=== PATIENT | female | born 1985 | race Caucasian/White ===

== ENCOUNTER → 2017-02-06 | Outpatient (CLI) | payer OTHER ==
[~2017-02-06] MED LIST: CHOL100010 PO; DULO60CA44 PO; PRT/20 PO
[2017-02-06 18:08] LABS: ALKALINE PHOSPHATASE 78 U/L (45-117); ALT/SGPT 37 U/L (12-78); AST/SGOT 16 U/L (15-37); BLOOD UREA NITROGEN 13 mg/dl (7-18); BUN/CREATININE RATIO 21.5 (10-20); CALCIUM 9.3 mg/dl (8.5-10.1); CARBON DIOXIDE 26 mmol/L (21-32); CHLORIDE 107 mmol/L (98-107); CREATININE 0.61 mg/dl (0.60-1.20); GLUCOSE 96 mg/dl (70-99); HDL CHOLESTEROL 51 mg/dl; POTASSIUM 4.1 mmol/L (3.5-5.1); SODIUM 137 mmol/L (136-145)
[2017-02-06 18:19] LABS: CHOLESTEROL 233 mg/dl (0-200); CHOLESTEROL/HDL RATIO 4.6; LDL CHOLESTEROL CALCULATED 148 mg/dl; THYROID STIMULATING HORMONE 0.974 uIu/ml (0.300-4.500); TRIGLYCERIDES 168 mg/dl (0-150); VERY LOW DENSITY LIPOPROT CALC 34 mg/dl
[2017-02-11 05:28] LABS: ANTI-CENTROMERE AB <1.0 NEG AI (<1.0 NEG); ANTI-SS-A <1.0 NEG AI (<1.0 NEG); ANTI-SS-B <1.0 NEG AI (<1.0 NEG); DNA ds CRITHIDIA NEGATIVE (NEGATIVE); Sm Antibody <1.0 NEG AI (<1.0 NEG)
== END | disposition home or self-care (01) ==
LOC: C.LABPBG 15:03
PROVIDERS: ATTEND Physician Assistant
DX: Z00.00 Encounter for general adult medical examination without abnormal findings (principal); R53.83 Other fatigue; G62.9 Polyneuropathy, unspecified; M62.81 Muscle weakness (generalized)

== ENCOUNTER → 2017-02-20 | Outpatient (CLI) | payer OTHER ==
[2017-02-20 11:55] LABS: BASO % 0.2 %; BASO ABS # 0.03 K/uL (0-0.2); COMPLETE YES; EOS % 1.3 %; HEMATOCRIT 36.6 % (37-47); IG% 0.2 %; LYMPH % 9.9 %; LYMPH ABS # 1.38 K/uL (1.2-3.4); MEAN CELL VOLUME 90.8 fL (80-100); MEAN CORPUSCULAR HGB CONC 34.2 g/dl (32-36); MEAN PLATELET VOLUME 10.1 fL (7.4-10.4); MONO % 7.1 %; NEUT % 81.3 %; PLATELET COUNT 360 K/uL (130-400); RED BLOOD COUNT 4.03 M/uL (4.2-5.4); WHITE BLOOD COUNT 13.89 K/uL (4.8-10.8)
[2017-02-20 18:31] LABS: LYME DISEASE AB IGG NEG (NEG); LYME DISEASE AB IGM NEG (NEG)
== END | disposition home or self-care (01) ==
LOC: C.LABPBG 10:37
PROVIDERS: ATTEND Family Medicine
DX: R53.83 Other fatigue (principal); R29.898 Other symptoms and signs involving the musculoskeletal system; M79.606 Pain in leg, unspecified

== ENCOUNTER → 2017-02-26 | Day surgery (SDC) | payer OTHER ==
[~2017-02-26] VITALS: Ht 160 cm; Wt 77.3 kg
[~2017-02-26] MED LIST changes: +LIDOCAINE HCL 2% 2 ML VIAL (20MG/ML) ONE; +ONDANSETRON INJ 2 MG/ML 2 ML VIAL ONE; +PROPOFOL IV EMULSION 10 MG/ML 20 ML VIAL IV ONE; +SODIUM CHLORIDE 0.9% 500ML 500 ML IV ONE
[2017-02-26 13:38] VITALS: Ht 160 cm; Wt 77.3 kg
--- NOTE | 2017-02-26 13:52 | Endo History and Physical ---
History & Physical Date of Service: Feb 26, 2017. Chief Complaint: Dysphagia, Eosinophilic esophagitis Referring Physician: Dr. Cody History of Present Illness 31 yo CF who presents for EGD secondary to eosinophilic esophagitis and dysphagia. Past Surgical History Hx Cardiac Surgery: No Hx Internal Defibrillator: No Hx Pacemaker: No Hx Abdominal Surgery: Yes (KIANA, TUBAL LIGATION) Hx of Implantable Prosthesis: No Hx Post-Op Nausea and Vomiting: No Hx Cancer Surgery: No Hx Thoracic Surgery: No Hx Orthopedic: No Hx Urinary Tract Surgery: No Family History None Social History Smoking Status: Current Every Day Smoker Hx Substance Use: No Hx Alcohol Use: Yes (SOCIAL) Allergies Coded Allergies: No Known Allergies (Unverified , 02/26/17) Current Medications Reported Home Medications Medications Dose Route/Sig Max Daily Dose Days Date Category Dose Instructions Protonix (Pantoprazole Sodium) 20 Mg Tab 20 Mg PO DAILY 02/21/17 Reported AT PHARMACY NEW PRESCRIPTION Vitamin D (Cholecalciferol) 1,000 Unit Tab 1 Tab PO QPM 02/21/17 Reported Cymbalta (Duloxetine Hcl) 60 Mg Cap 60 Mg PO QPM 02/21/17 Reported Vital Signs Weight (Kilograms): 77.27 Height (Feet): 5 Height (Inches): 3 Physical Exam General Appearance: WD/WN, no apparent distress Respiratory/Chest: Auscultation: breath sounds normal Cardiovascular: Heart Auscultation: RRR Abdomen: Bowel Sounds: normal Inspection & Palpation: soft, non-distended, no tenderness, guarding & rebound Assessment and Plan Assessment: 31 yo CF who presents for EGD secondary to eosinophilic esophagitis and dysphagia. Plan: Proceed with EGD.
--- NOTE | 2017-02-26 15:02 | Discharge Instructions ---
Endoscopy Patient Instructions Date / Procedure(s) Performed Feb 26, 2017. EGD Allergy Information Coded Allergies: No Known Allergies (Unverified , 02/26/17) Discharge Date / Findings Feb 26, 2017. Eosinophilic esophagitis s/p dilation Hiatal hernia Medication Instructions OK to resume all medications today as prescribed Reported Home Medications Medications Dose Route/Sig Max Daily Dose Days Date Category Dose Instructions Protonix (Pantoprazole Sodium) 20 Mg Tab 20 Mg PO DAILY 02/21/17 Reported AT PHARMACY NEW PRESCRIPTION Vitamin D (Cholecalciferol) 1,000 Unit Tab 1 Tab PO QPM 02/21/17 Reported Cymbalta (Duloxetine Hcl) 60 Mg Cap 60 Mg PO QPM 02/21/17 Reported Provider Instructions Activity Restrictions - No exercising or heavy lifting for 24 hours. - Do not drink alcohol the day of the procedure. - Do not drive a car or operate machinery until the day after the procedure. - Do not make any important decisions or sign important papers in 24 hours after the procedure. Following Day: - Return to full activity which may include returning to work/school. Diet Start your diet with liquids and light foods (jello, soup, juice, toast). Then eat your usual diet if not nauseated. Treatment For Common After Affects For mild abdominal pain, bloating, or excessive gas: - Rest - Eat lightly - Lie on right side Follow-Up Information Follow-up with DR. CLIFFORD as scheduled Anesthesia Information What You Should Know You have had a procedure that required some medicine to reduce anxiety and discomfort. This treatment is called moderate sedation. After receiving the treatment, you may be sleepy, but you will be able to breathe on your own. The effects of the treatment may last for several hours. Follow these instructions along with Activity/Diet recommendations noted above: * Do NOT do anything where dizziness or clumsiness would be dangerous. * Rest quietly at home today, then you can be up and about tomorrow. * Have a responsible person stay with you the rest of today. * You may have had an I.V. today. If so, you may take the dressing off later today. Recommendations Call your doctor if: * Trouble breathing * Continuous vomiting for more than 24 hours * Temperature above 101 degrees * Severe abdominal pain or bloating * Pain not relieved by pain medicine ordered * There is increased drainage or redness from any incision * A large amount of rectal bleeding greater than 2-3 tablespoons. (If you had a polyp/s removed or have hemorrhoids, a small amount of blood - from the rectum is to be expected.) * You have any unanswered questions or concerns. IN THE EVENT OF A SERIOUS EMERGENCY, GO TO THE NEAREST EMERGENCY ROOM Your discharge instructions were prepared by provider Wyatt Alicia. Patient Instructions Signature Page Salima Masters Patient (or Guardian) Signature/Date: I have read and understand the instructions given to me by my caregivers. Caregiver/RN/Doctor Signature/Date: The above-named patient and/or guardian has received patient instructions on this date. + Original Patient Signature Page (only) stays with chart. Please make copy for patient.
--- NOTE | 2017-02-26 15:13 | GI REPORT ---
Procedure Date: 02/26/2017 2:43 PM Procedure: Upper GI endoscopy Indications: Dysphagia, Follow-up of eosinophilic esophagitis Medicines: Monitored Anesthesia Care Complications: No immediate complications. Estimated Blood Loss: Estimated blood loss: none. Procedure: Pre-Anesthesia Assessment: - Prior to the procedure, a History and Physical was performed, and patient medications and allergies were reviewed. The patient's tolerance of previous anesthesia was also reviewed. The risks and benefits of the procedure and the sedation options and risks were discussed with the patient. All questions were answered, and informed consent was obtained. Prior Anticoagulants: The patient has taken no previous anticoagulant or antiplatelet agents. ASA Grade Assessment: II - A patient with mild systemic disease. After reviewing the risks and benefits, the patient was deemed in satisfactory condition to undergo the procedure. After obtaining informed consent, the endoscope was passed under direct vision. Throughout the procedure, the patient's blood pressure, pulse, and oxygen saturations were monitored continuously. The scope was introduced through the mouth, and advanced to the second part of duodenum. The upper GI endoscopy was accomplished without difficulty. The patient tolerated the procedure well. Findings: Mucosal changes including ringed esophagus, longitudinal furrows and stenosis were found in the middle third of the esophagus. A guidewire was placed and the scope was withdrawn. Dilation was performed with a Savary dilator with mild resistance at 45 Fr. Estimated blood loss was minimal. A small hiatus hernia was present. The examined duodenum was normal. Impression: - Esophageal mucosal changes consistent with eosinophilic esophagitis. Dilated. - Small hiatus hernia. - Normal examined duodenum. - No specimens collected. Recommendation: - Resume previous diet. - Continue present medications. - Repeat the upper endoscopy PRN for retreatment. - Return to GI clinic as previously scheduled. Wyatt Alicia DO 02/26/2017 3:13:12 PM This report has been signed electronically. Note Initiated On: 02/26/2017 2:43 PM I attest to the content of the Intraoperative Record and orders documented therein, exceptions below
[2017-02-26 15:32] VITALS: BP 115/77; PULSE 71; O2SAT 100
--- NOTE | 2017-02-26 16:18 | Anesthesiology Progress Note ---
Anesthesia Post Op Note Date & Time Feb 26, 2017 at 16:17 Vital Signs Pain Intensity: 0 Vital Signs Past 12 Hours Date Time Temp Pulse Resp B/P (MAP) Pulse Ox O2 Delivery O2 Flow Rate FiO2 02/26/17 15:32 71 16 115/77 (90) 100 Room Air 02/26/17 15:17 71 16 115/81 (92) 97 Room Air 02/26/17 15:02 85 16 97/59 (72) 99 Room Air 02/26/17 13:52 36.8 76 18 116/66 (83) 98 Room Air Notes Mental Status: alert / awake / arousable, participated in evaluation Pt Amnestic to Procedure: Yes Nausea / Vomiting: adequately controlled Pain: adequately controlled Airway Patency, RR, SpO2: stable & adequate BP & HR: stable & adequate Hydration State: stable & adequate Anesthetic Complications: no major complications apparent
== END | disposition home or self-care (01) ==
LOC: C.GI 13:02
PROVIDERS: ATTEND Internal Medicine
DX: R13.10 Dysphagia, unspecified (principal); K20.0 Eosinophilic esophagitis; K44.9 Diaphragmatic hernia without obstruction or gangrene; Z90.49 Acquired absence of other specified parts of digestive tract; Z98.51 Tubal ligation status; F17.200 Nicotine dependence, unspecified, uncomplicated; G47.33 Obstructive sleep apnea (adult) (pediatric); K21.9 Gastro-esophageal reflux disease without esophagitis; M19.90 Unspecified osteoarthritis, unspecified site; E89.0 Postprocedural hypothyroidism

== ENCOUNTER 2017-08-08 13:11 | Emergency (ER) | payer OTHER ==
[~2017-08-08] VITALS: Ht 160 cm; Wt 80.0 kg
[~2017-08-08 13:11] MED LIST changes: -LIDOCAINE HCL 2% 2 ML VIAL (20MG/ML) ONE; -ONDANSETRON INJ 2 MG/ML 2 ML VIAL ONE; -PROPOFOL IV EMULSION 10 MG/ML 20 ML VIAL IV ONE; -SODIUM CHLORIDE 0.9% 500ML 500 ML IV ONE
[2017-08-08 13:12] VITALS: TEMP 36.7; Ht 160 cm; Wt 80.0 kg
[2017-08-08] MEDS ORDERED: ONDANSETRON INJ 2 MG/ML 2 ML VIAL IV STA (13:33)
[2017-08-08] MEDS ORDERED: SODIUM CHLORIDE 0.9% 1000ML 1,000 ML IV STA (13:33)
[2017-08-08] MEDS ORDERED: MoRPHine SULFATE 10 MG/ML CARP/VIAL IV STA (13:33)
[2017-08-08 14:01] LABS: BASO % 0.1 %; BASO ABS # 0.01 K/uL (0-0.2); EOS % 0.7 %; EOS ABS # 0.06 K/uL (0-0.5); HEMATOCRIT 41.6 % (37-47); HEMOGLOBIN 14.2 g/dL (12.0-16.0); IG# 0.02 K/uL (0.00-0.02); LYMPH % 19.2 %; LYMPH ABS # 1.75 K/uL (1.2-3.4); MEAN CELL VOLUME 91.2 fL (80-100); MEAN CORPUSCULAR HEMOGLOBIN 31.1 pg (25-34); MEAN CORPUSCULAR HGB CONC 34.1 g/dl (32-36); MEAN PLATELET VOLUME 9.4 fL (7.4-10.4); MONO % 5.9 %; MONO ABS # 0.54 K/uL (0.11-0.59); NEUT % 73.9 %; NEUT ABS # 6.73 K/uL (1.4-6.5); PLATELET COUNT 435 K/uL (130-400); RED CELL DISTRIBUTION WIDTH CV 12.8 % (11.5-14.5); RED CELL DISTRIBUTION WIDTH SD 42.9 fL (36.4-46.3); WHITE BLOOD COUNT 9.11 K/uL (4.8-10.8)
[2017-08-08 14:19] LABS: ALBUMIN 4.1 gm/dl (3.4-5.0); ALT/SGPT 34 U/L (12-78); AST/SGOT 17 U/L (15-37); BLOOD UREA NITROGEN 9 mg/dl (7-18); CARBON DIOXIDE 26 mmol/L (21-32); CREATININE 0.66 mg/dl (0.60-1.20); GLUCOSE 97 mg/dl (70-99); POTASSIUM 4.1 mmol/L (3.5-5.1); SODIUM 137 mmol/L (136-145)
--- NOTE | 2017-08-08 14:21 | DIAGNOSTIC IMAGING REPORT ---
ABD/PELVIS WITHOUT FOR STONE CT DOSE: 950.81 mGycm HISTORY: Flank pain left flank pain, pelvic pain TECHNIQUE: Multiaxial CT images of the abdomen and pelvis were performed without the use of intravenous and oral contrast according to the standard department stone protocol. A dose lowering technique was utilized adhering to the principles of ALARA. COMPARISON STUDY: None. FINDINGS: The lung bases are clear. The unenhanced liver,, spleen, pancreas, and adrenal glands are unremarkable. No renal stones or hydronephrosis. No bowel wall thickening or obstruction. The pelvic organs are unremarkable. No suspicious lytic or blastic osseous lesions. Prior cholecystectomy. Normal appendix IMPRESSION: No renal stones or hydronephrosis. Negative study post cholecystectomy. The above report was generated using voice recognition software. It may contain grammatical, syntax or spelling errors. Electronically signed by: Magen Smith M.D. 08/08/2017 2:19 PM Dictated Date/Time: 08/08/2017 2:15 PM
[2017-08-08 14:22] LABS: ALKALINE PHOSPHATASE 89 U/L (45-117); TOTAL PROTEIN 8.2 gm/dl (6.4-8.2)
--- NOTE | 2017-08-08 15:17 | EMERGENCY ROOM VISIT NOTE ---
History First contact with patient: 13:16 Chief Complaint: FLANK PAIN Stated Complaint: PAIN IN LOWER BACK History of Present Illness The patient is a 32 year old female who presents to the Emergency Room with complaints of back and pelvic pain. The patient reports that she has had pain in her low back for "a while." She states the pain worsened today. She has had x-rays of the back in the past and told that she has arthritis. She was seen by her primary care provider today due to worsening pain and was sent here for evaluation of a possible kidney stone. She had a urinalysis done there and was told that there was blood in her urine. She states the pain is in the left lower back and flank and radiates into the pelvis. She states she feels that she has pain in her vagina. She has had associated nausea and had one episode of vomiting today when the pain was severe. She rates her discomfort an 8/10. She states the pain is constant but she has occasional waves of more severe pain. She describes the pain as a stabbing sensation. Her last menstrual period was last week. She does report that she has had painful menstrual periods for several months. She denies any abnormal discharge, fevers, leg pain , numbness or weakness. Review of Systems A complete 10 point review of systems was reviewed with the patient with pertinent positives and negatives as per history of present illness. All else were negative. Past Medical/Surgical History Medical Problems: (1) Metabolic myopathy (2) Mitochondrial disease Surgical Problems: (1) History of cholecystectomy (2) History of tubal ligation Social History Smoking Status: Current Every Day Smoker Alcohol Use: none Marital Status: Housing Status: lives with family Occupation Status: unemployed Current/Historical Medications Scheduled Cholecalciferol (Vitamin D), 1 TAB PO QPM Duloxetine Hcl (Cymbalta), 60 MG PO QPM Pantoprazole (Protonix), 20 MG PO DAILY Physical Exam Vital Signs Date Time Temp Pulse Resp B/P (MAP) Pulse Ox O2 Delivery O2 Flow Rate FiO2 08/08/17 15:45 78 18 113/63 98 Room Air 08/08/17 13:48 78 18 113/86 96 Room Air 08/08/17 13:12 36.7 88 18 125/84 97 Room Air Physical Exam VITALS: Vitals are noted on the nurse's note and reviewed by myself. Vital signs stable. GENERAL: This is a 32-year-old female, in no acute distress, nondiaphoretic, well-developed well-nourished. SKIN: The skin was without rashes. NECK: Supple without nuchal rigidity. HEART: Regular rate and rhythm without murmurs gallops or rubs. LUNGS: Clear to auscultation bilaterally without wheezes, rales or rhonchi. ABDOMEN: Positive bowel sounds x 4. Soft, nondistended. There is mild tenderness to palpation across the lower abdomen/pelvic region. No guarding or rebound tenderness. PELVIC: Small amount of weight discharge in the vaginal vault. No cervicitis. No cervical motion tenderness. MUSCULOSKELETAL: There is some mild tenderness to palpation in the right lumbar region/right flank. NEURO: Patient was alert and oriented to person place and time. Medical Decision & Procedures ER Provider Diagnostic Interpretation: ABD/PELVIS WITHOUT FOR STONE FINDINGS: The lung bases are clear. The unenhanced liver,, spleen, pancreas, and adrenal glands are unremarkable. No renal stones or hydronephrosis. No bowel wall thickening or obstruction. The pelvic organs are unremarkable. No suspicious lytic or blastic osseous lesions. Prior cholecystectomy. Normal appendix IMPRESSION: No renal stones or hydronephrosis. Negative study post cholecystectomy. PELVIC COMPLETE NON OB FINDINGS: TRANSABDOMINAL: Anteflexed uterus measures 8.5 x 4.5 x 5.2 cm. TRANSVAGINAL: Anteflexed uterus measures 9.5 x 4.1 x 5.1 cm and is within normal limits without myometrial mass lesion. Endometrium appears normal, 1.0 cm. The right ovary measures 2.3 x 1.5 x 1.5 cm. Complex appearing hypoechoic centrally cystic lesion of the right ovary measures 1.5 cm suggesting dominant ovarian follicle. Arterial inflow to the right ovary is documented. Bilateral adnexal tubo-ovarian occlusion devices noted. No significant free pelvic fluid. The left ovary measures 2.1 x 1.6 x 1.5 cm with arterial inflow. No left adnexal mass lesions. IMPRESSION: 1. Unremarkable sonographic appearance of the uterus, endometrium and left ovary. No evidence of ovarian torsion. 2. 1.5 cm right ovarian dominant follicle. 3. Bilateral tubo-ovarian occlusion devices noted compatible with patient history of prior tubal ligation. Laboratory Results 08/08/17 13:35 Red Blood Count 4.56, Mean Corpuscular Volume 91.2, Mean Corpuscular Hemoglobin 31.1, Mean Corpuscular Hemoglobin Concent 34.1, Mean Platelet Volume 9.4, Neutrophils (%) (Auto) 73.9, Lymphocytes (%) (Auto) 19.2, Monocytes (%) (Auto) 5.9, Eosinophils (%) (Auto) 0.7, Basophils (%) (Auto) 0.1, Neutrophils # (Auto) 6.73, Lymphocytes # (Auto) 1.75, Monocytes # (Auto) 0.54, Eosinophils # (Auto) 0.06, Basophils # (Auto) 0.01 08/08/17 13:35 Test 08/08/17 13:35 08/08/17 13:43 08/08/17 16:02 White Blood Count 9.11 K/uL (4.8-10.8) Red Blood Count 4.56 M/uL (4.2-5.4) Hemoglobin 14.2 g/dL (12.0-16.0) Hematocrit 41.6 % (37-47) Mean Corpuscular Volume 91.2 fL (80-100) Mean Corpuscular Hemoglobin 31.1 pg (25-34) Mean Corpuscular Hemoglobin Concent 34.1 g/dl (32-36) Platelet Count 435 K/uL (130-400) Mean Platelet Volume 9.4 fL (7.4-10.4) Neutrophils (%) (Auto) 73.9 % Lymphocytes (%) (Auto) 19.2 % Monocytes (%) (Auto) 5.9 % Eosinophils (%) (Auto) 0.7 % Basophils (%) (Auto) 0.1 % Neutrophils # (Auto) 6.73 K/uL (1.4-6.5) Lymphocytes # (Auto) 1.75 K/uL (1.2-3.4) Monocytes # (Auto) 0.54 K/uL (0.11-0.59) Eosinophils # (Auto) 0.06 K/uL (0-0.5) Basophils # (Auto) 0.01 K/uL (0-0.2) RDW Standard Deviation 42.9 fL (36.4-46.3) RDW Coefficient of Variation 12.8 % (11.5-14.5) Immature Granulocyte % (Auto) 0.2 % Immature Granulocyte # (Auto) 0.02 K/uL (0.00-0.02) Anion Gap 5.0 mmol/L (3-11) Est Creatinine Clear Calc Drug Dose 120.3 ml/min Estimated GFR () 133.6 Estimated GFR (Non- 115.3 BUN/Creatinine Ratio 14.5 (10-20) Calcium Level 9.0 mg/dl (8.5-10.1) Total Bilirubin 0.4 mg/dl (0.2-1) Direct Bilirubin < 0.1 mg/dl (0-0.2) Aspartate Amino Transf (AST/SGOT) 17 U/L (15-37) Alanine Aminotransferase (ALT/SGPT) 34 U/L (12-78) Alkaline Phosphatase 89 U/L (45-117) Total Protein 8.2 gm/dl (6.4-8.2) Albumin 4.1 gm/dl (3.4-5.0) Urine Color YELLOW Urine Appearance CLEAR (CLEAR) Urine pH 7.5 (4.5-7.5) Urine Specific [place] 1.006 (1.000-1.030) Urine Protein NEG (NEG) Urine Glucose (UA) NEG (NEG) Urine Ketones NEG (NEG) Urine Occult Blood NEG (NEG) Urine Nitrite NEG (NEG) Urine Bilirubin NEG (NEG) Urine Urobilinogen NEG (NEG) Urine Leukocyte Esterase NEG (NEG) Date/Time Source Procedure Growth Status 08/08/17 16:02 Vaginal Swab Trichomonas Preparation - Final Complete Medications Administered Medications (Trade) Dose Ordered Sig/Dipak Route Start Time Stop Time Status Last Admin Dose Admin Sodium Chloride 1,000 ml @ 999 mls/hr Q1H1M STAT IV 08/08/17 13:33 08/08/17 14:33 DC 08/08/17 13:49 999 MLS/HR Ondansetron HCl (Zofran Inj) 4 mg NOW STAT IV 08/08/17 13:33 08/08/17 13:35 DC 08/08/17 13:49 4 MG Morphine Sulfate (MoRPHine SULFATE INJ) 8 mg NOW STAT IV 08/08/17 13:33 08/08/17 13:35 DC 08/08/17 13:49 8 MG Morphine Sulfate (MoRPHine SULFATE INJ) 4 mg NOW STAT IV 08/08/17 15:44 08/08/17 15:45 DC 08/08/17 15:53 4 MG ED Course The patient was evaluated as above. Labs were drawn and IV access was obtained. Patient was medicated with 1 L normal saline, 8 mg morphine and 4 mg Zofran. Patient complained of increased pain and was given an additional 4 mg morphine. Patient was reevaluated. Pelvic exam was performed at this time. Discharge instructions were reviewed with the patient. The patient verbalized understanding of my assessment and treatment plan and was discharged home in good condition. Medical Decision Differential diagnosis includes kidney stone, pyelonephritis, PID, ovarian cyst , ovarian torsion, gastroenteritis, colitis, diverticulitis, appendicitis, among others. The patient is a 32-year-old female who presents today complaining of flank and pelvic pain. Labs revealed no leukocytosis, anemia or concerning electrolyte abnormalities. Urinalysis was not suggestive of infection. CT was performed and showed no evidence of kidney stone or other acute finding within the abdomen or pelvis. Pelvic ultrasound was performed and showed no abnormality. Pelvic exam was not suggestive of PID. Cultures were obtained. Patient has had ongoing pelvic and back pain for several months. She will need follow-up with primary care provider and [facility] for evaluation of this. Conservative measures were discussed with the patient. Based on the patient's presentation and work up, I feel the patient is stable for outpatient treatment. The patient was educated to return to the emergency department for any worsening of their current condition or new/concerning symptoms. She will follow up with her PCP and [facility]. Medication Reconcilliation Current Medication List: was personally reviewed by me Blood Pressure Screening Patient's blood pressure: Normal blood pressure Impression Primary Impression: Pelvic pain Departure Information Dispostion Home / Self-Care Condition GOOD Referrals Manuela Cody DO (PCP) Kathi Gee MD Patient Instructions My [facility] Additional Instructions You have been treated in the Emergency Department for your Abdominal/pelvic pain. Laboratory results and imaging studies have ruled out any emergent causes for your abdominal pain which would warrant admission or surgery. For pain control, you can use the following [id number] medicines (if >12 yo): - Regular strength (325mg/tab) Tylenol (acetaminophen) 2 tabs every 4-6 hours as needed. Do not exceed 12 tablets in a 24 hour period. Avoid taking more than 4 grams (4000 mg) of Tylenol per day. This includes any other sources of acetaminophen you may take on a regular basis. Drink plenty of water and stay well hydrated. As with any trip to the Emergency Department, you should follow-up with your Primary Care Provider from today's visit. Contact [facility] to schedule a follow-up visit from today's ER visit. Return to the emergency department if your symptoms persist despite treatment plan outlined above or if the following symptoms occur: Worsening pain, vomiting , fever or other new/concerning symptoms.
--- NOTE | 2017-08-08 15:39 | DIAGNOSTIC IMAGING REPORT ---
PELVIC COMPLETE NON OB HISTORY: 32 years-old Female pelvic pain acute lower abdominal and pelvic pain COMPARISON: CT abdomen and pelvis 08/08/2017 TECHNIQUE: Multiple real-time sonographic images of the deep pelvic structures were obtained transabdominally and transvaginally assessing grayscale appearance, color and spectral flow FINDINGS: TRANSABDOMINAL: Anteflexed uterus measures 8.5 x 4.5 x 5.2 cm. TRANSVAGINAL: Anteflexed uterus measures 9.5 x 4.1 x 5.1 cm and is within normal limits without myometrial mass lesion. Endometrium appears normal, 1.0 cm. The right ovary measures 2.3 x 1.5 x 1.5 cm. Complex appearing hypoechoic centrally cystic lesion of the right ovary measures 1.5 cm suggesting dominant ovarian follicle. Arterial inflow to the right ovary is documented. Bilateral adnexal tubo-ovarian occlusion devices noted. No significant free pelvic fluid. The left ovary measures 2.1 x 1.6 x 1.5 cm with arterial inflow. No left adnexal mass lesions. IMPRESSION: 1. Unremarkable sonographic appearance of the uterus, endometrium and left ovary. No evidence of ovarian torsion. 2. 1.5 cm right ovarian dominant follicle. 3. Bilateral tubo-ovarian occlusion devices noted compatible with patient history of prior tubal ligation. The above report was generated using voice recognition software. It may contain grammatical, syntax or spelling errors. Electronically signed by: Mario Carr M.D. 08/08/2017 3:38 PM Dictated Date/Time: 08/08/2017 3:34 PM
[2017-08-08] MEDS ORDERED: MoRPHine SULFATE 4 MG/ML 1 ML CARP\\VIAL IV STA (15:44)
[2017-08-08 15:45] VITALS: BP 113/63; PULSE 78; O2SAT 98
== END 2017-08-08 16:17 | disposition home or self-care (01) ==
LOC: C.EDB 13:12 → C.EDC 16:17
DX: R10.2 Pelvic and perineal pain (principal); E88.9 Metabolic disorder, unspecified; G73.7 Myopathy in diseases classified elsewhere; F17.210 Nicotine dependence, cigarettes, uncomplicated; Z79.899 Other long term (current) drug therapy